=== PATIENT | female | born 1970 | race African-American/Black ===

== ENCOUNTER 2018-10-23 06:52 | Inpatient (IN) | payer SELFPAY ==
[~2018-10-23] VITALS: Ht 170.2 cm; Wt 77.1 kg
[2018-10-23] VITALS (28 sets, daily range): BP systolic 123–203; BP diastolic 71–118
[~2018-10-23 06:52] MED LIST: AMLO10TA6 PO; HYDR-2761 PO; LISI-130 PO
[2018-10-23 07:27] LABS: BASO % 0 % (0-3); EOS # 0.1 x10^3/uL (0.0-0.7); EOS % 1 % (0-3); HEMATOCRIT 37.7 % (36.0-47.0); HEMOGLOBIN 12.3 g/dL (12.0-15.5); LYMPH # 1.6 x10^3/uL (1.0-4.8); LYMPH % 32 % (24-48); MEAN CORPUSCULAR HEMOGLOBIN 24 pg (25-35); MEAN CORPUSCULAR HGB CONC 33 g/dL (31-37); MEAN CORPUSCULAR VOLUME 73 fL (79-100); MONO # 0.6 x10^3/uL (0.0-1.1); MONO % 12 % (0-9); NEUT # 2.7 x10^3uL (1.8-7.7); NEUT % 55 % (31-73); PLATELET COUNT 199 x10^3/uL (140-400); RED CELL DISTRIBUTION WIDTH 15.3 % (11.5-14.5); WHITE BLOOD COUNT 4.9 x10^3/uL (4.0-11.0)
--- NOTE | 2018-10-23 07:27 | EKG ---
[facility] [address] [place] [address] Test Date: 2018-10-23 Test Time: 07:14:41 Pat Name: ISELA FLEMING Department: Room: Gender: F Customer Operations Specialist: Kaycee : 1970 Requested By: DENITA BRADY Order Number: [id number] Reading MD: Measurements Intervals [place] Rate: 85 P: 55 ND: 156 QRS: 9 QRSD: 84 T: 62 QT: 382 QTc: 455 Interpretive Statements SINUS RHYTHM LEFT ATRIAL ABNORMALITY ABNORMAL ECG RI6.01 No previous ECG available for comparison
--- NOTE | 2018-10-23 07:29 | PHYS DOC ---
Past Medical History Past Medical History: Hypertension Past Surgical History: Tonsillectomy, Other Additional Past Surgical Histo: abd sx Additional Information: / ppd Alcohol Use: Occasionally Additional Information: Last drink of alcohol was yesterday Drug Use: Marijuana Adult General Chief Complaint Chief Complaint: CHEST PAIN-NON CARDIAC NATURE HPI HPI Patient is a 48 year old female who is presenting with chief complaint of chest discomfort has had this intermittently for months but over the last 24 hours is more constant and more severe pinching like needles pain in the sternum nonradiating but associated with some numbness of first the right and then the left arm. No abdominal pain no vomiting mild shortness of breath she was on blood pressure medication in the past but has not taken in a while she did not like the way made her feel. The pain is nonexertional Review of Systems Review of Systems Constitutional: Denies fever or chills [] Eyes: Denies change in visual acuity, redness, or eye pain [] HENT: Denies nasal congestion or sore throat [] Respiratory: Cardiovascular: No additional information not addressed in HPI [] GI: Denies abdominal pain, nausea, vomiting, bloody stools or diarrhea [] Neurologic: Denies headache, focal weakness or sensory changes [] All other systems were reviewed and found to be within normal limits, except as documented in this note. Current Medications Current Medications Current Medications Medications (Trade) Dose Ordered Sig/Leonid Start Time Stop Time Status Last Admin Dose Admin Aspirin (Children'S Aspirin) 324 mg 1X ONCE 10/23/18 07:30 10/23/18 07:31 DC 10/23/18 07:27 324 MG Info (CONTRAST GIVEN -- Rx MONITORING) 1 each PRN DAILY PRN 10/23/18 08:00 18 07:59 Labetalol HCl (Normodyne Iv Push) 20 mg 1X ONCE 10/23/18 07:30 10/23/18 07:31 DC 10/23/18 07:30 20 MG Nitroglycerin (Nitro-Bid Oint) 2 inch 1X ONCE 10/23/18 07:30 10/23/18 08:31 DC 10/23/18 07:28 2 INCH Allergies Allergies Allergies Coded Allergies Type Severity Reaction Last Updated Verified No Known Drug Allergies 02/24/14 No Physical Exam Physical Exam Constitutional: Well developed, well nourished, no acute distress, non-toxic appearance. [] HENT: Normocephalic, atraumatic, bilateral external ears normal, oropharynx moist, no oral exudates, nose normal. [] Eyes: PERRLA, EOMI, conjunctiva normal, no discharge. [] Neck: Normal range of motion, no tenderness, supple, no stridor. [] Cardiovascular:Heart rate regular rhythm, no murmur [] Lungs & Thorax: Bilateral breath sounds clear to auscultation [] Abdomen: Bowel sounds normal, soft, no tenderness, no masses, no pulsatile masses. [] Skin: Warm, dry, no erythema, no rash. [] Back: No tenderness, no CVA tenderness. [] Extremities: No tenderness, no cyanosis, no clubbing, ROM intact, no edema. [] Neurologic: Alert and oriented X 3, normal motor function, normal sensory function, no focal deficits noted. [] Psychologic: Affect normal, judgement normal, mood normal. [] Current Patient Data Vital Signs Vital Signs Date Time Temp Pulse Resp B/P (MAP) Pulse Ox O2 Delivery O2 Flow Rate FiO2 10/23/18 07:30 83 247/118 10/23/18 07:01 97.7 20 100 Room Air 97.7 Lab Values Laboratory Tests Test 10/23/18 07:05 10/23/18 07:13 10/23/18 07:14 10/23/18 07:16 White Blood Count 4.9 x10^3/uL (4.0-11.0) Red Blood Count 5.20 x10^6/uL (3.50-5.40) Hemoglobin 12.3 g/dL (12.0-15.5) Hematocrit 37.7 % (36.0-47.0) Mean Corpuscular Volume 73 fL (79-100) L Mean Corpuscular Hemoglobin 24 pg (25-35) L Mean Corpuscular Hemoglobin Concent 33 g/dL (31-37) Red Cell Distribution Width 15.3 % (11.5-14.5) H Platelet Count 199 x10^3/uL (140-400) Neutrophils (%) (Auto) 55 % (31-73) Lymphocytes (%) (Auto) 32 % (24-48) Monocytes (%) (Auto) 12 % (0-9) H Eosinophils (%) (Auto) 1 % (0-3) Basophils (%) (Auto) 0 % (0-3) Neutrophils # (Auto) 2.7 x10^3uL (1.8-7.7) Lymphocytes # (Auto) 1.6 x10^3/uL (1.0-4.8) Monocytes # (Auto) 0.6 x10^3/uL (0.0-1.1) Eosinophils # (Auto) 0.1 x10^3/uL (0.0-0.7) Basophils # (Auto) 0.0 x10^3/uL (0.0-0.2) Prothrombin Time 11.5 SEC (11.7-14.0) L Prothrombin Time INR 0.9 (0.8-1.1) Maternal Serum HCG Beta Subunit 1 mIU/mL (0-5) Sodium Level 137 mmol/L (136-145) Potassium Level 3.7 mmol/L (3.5-5.1) Chloride Level 100 mmol/L (98-107) Carbon Dioxide Level 29 mmol/L (21-32) Anion Gap 8 (6-14) 19 mmol/L (6-14) H Blood Urea Nitrogen 15 mg/dL (7-20) Creatinine 0.8 mg/dL (0.6-1.0) Estimated GFR (Cockcroft-Gault) 92.6 BUN/Creatinine Ratio 19 (6-20) Glucose Level 95 mg/dL (70-99) 93 mg/dL (70-99) Calcium Level 8.7 mg/dL (8.5-10.1) Total Bilirubin 0.2 mg/dL (0.2-1.0) Aspartate Amino Transferase (AST) 15 U/L (15-37) Alanine Aminotransferase (ALT) 15 U/L (14-59) Alkaline Phosphatase 77 U/L (46-116) Troponin I Quantitative 0.113 ng/mL (0.000-0.055) LY-Ggw-J-Type Natriuretic Peptide 111 pg/mL (0-124) Total Protein 7.8 g/dL (6.4-8.2) Albumin 3.6 g/dL (3.4-5.0) Albumin/Globulin Ratio 0.9 (1.0-1.7) L Lipase 103 U/L (73-393) POC Urine HCG, Qualitative Hcg negative (Negative) POC Troponin I 0.06 ng/ml (<0.08) POC Hemoglobin 13.9 g/dL (12-15) POC Hematocrit 41 % (36-40) H POC Sodium 138 mmol/L (135-145) POC Potassium 3.6 mmol/L (3.5-5.0) POC Chloride 98 mmol/L (98-110) POC Total CO2 25 mmol/L (23-32) POC Blood Urea Nitrogen 13 mg/dL (8-26) POC Creatinine 0.7 mg/dL (0.5-1.4) POC Ionized Calcium (Karen) 1.17 mmol/L (1.13-1.32) Laboratory Tests 10/23/18 07:05 Laboratory Tests 10/23/18 07:05 10/23/18 07:16 EKG EKG []EKG shows a normal sinus rhythm with a rate of 85 there is some borderline ST depression inferiorly as well as laterally but there is no ST elevation noted. Interpreted by me the timing encounter Radiology/Procedures Radiology/Procedures [] Impressions: Impression: Partially calcified plaque involving the descending portion of the aortic arch. Scattered other calcific involvement of the abdominal aorta and iliac arteries. These findings are advanced for age. No intramural hematoma or aortic dissection identified. Distended main pulmonary artery. Findings of concern for pulmonary arterial hypertension. Right cystic thyroid lesion with nodular enhancing component. Further evaluation with ultrasound is recommended on a nonemergent basis. Enlarged fibroid uterus. Electronically signed by: Luigi Borges MD (10/23/2018 9:24 AM) [id number] DICTATED and SIGNED BY: TITA GHOSH MD DATE: 10/23/18 0825 Course & Med Decision Making Course & Med Decision Making Pertinent Labs and Imaging studies reviewed. (See chart for details) []Severe hypertension to 248/117 with hypertensive urgency some chest discomfort borderline EKG changes neEd to rule out dissection labetalol aspirin given in the emergency room patient will be admitted overnight for further stratification observation. pt requiring multiple doses of labetalol, nitro started bump in trop aspirin given ct neg for dissection i told the patient about the ened for outpatient thryoid ultrasound. d/w cameron saw pt in er Ilana Disclaimer Ilana Disclaimer This electronic medical record was generated, in whole or in part, using a voice recognition dictation system. Departure Departure Impression: Primary Impression: Chest pain Additional Impression: Hypertensive urgency Disposition: 09 ADMITTED INPATIENT Admitting Physician: Yani Peguero Condition: STABLE Problem Qualifiers DENITA BRADY MD Oct 23, 2018 07:29
[2018-10-23] MEDS ORDERED: NITROGLYCERIN OINT 1 GM PACKET. TP ONE (07:30)
[2018-10-23] MEDS ORDERED: ASPIRIN CHEWABLE 81 MG TABLET. PO ONE (07:30)
[2018-10-23] MEDS ORDERED: LABETALOL 20 MG/4 ML DISP.SYRIN. IVP ONE ×2 (07:30→09:00)
[2018-10-23 07:34] LABS: PROTHROMBIN TIME PATIENT 11.5 SEC (11.7-14.0)
[2018-10-23 07:38] LABS: CREATININE ISTAT 0.7 mg/dL (0.5-1.4); HEMOGLOBIN ISTAT 13.9 g/dL (12-15); ION CA ISTAT 1.17 mmol/L (1.13-1.32); POTASSIUM ISTAT 3.6 mmol/L (3.5-5.0)
[2018-10-23 07:44] LABS: CALCIUM 8.7 mg/dL (8.5-10.1); CREATININE 0.8 mg/dL (0.6-1.0); GFR 92.6; POTASSIUM 3.7 mmol/L (3.5-5.1)
[2018-10-23 07:49] LABS: ALBUMIN 3.6 g/dL (3.4-5.0); ALBUMIN/GLOBULIN RATIO 0.9 (1.0-1.7); TOTAL BILIRUBIN 0.2 mg/dL (0.2-1.0); TOTAL PROTEIN 7.8 g/dL (6.4-8.2)
[2018-10-23] MEDS ORDERED: CONTRAST GIVEN. MC PRN (08:00)
--- NOTE | 2018-10-23 08:03 | RAD ---
Portable chest, 10/23/2018: HISTORY: Chest pain Comparison is made to a study from 08/14/2014. The heart size and pulmonary vascularity are normal. No pulmonary infiltrate is seen. There is no evidence of pleural fluid. IMPRESSION: No acute cardiopulmonary abnormality is detected. Electronically signed by: Ankit Perry MD (10/23/2018 7:59 AM) [facility]
[2018-10-23] MEDS ORDERED: IOHEXOL 300 MG/ML 100ML VIAL. IV ONE (08:30)
[2018-10-23] MEDS ORDERED: fentaNYL PF VIAL 100 MCG/2 ML VIAL IV ONE (09:00)
[2018-10-23] MEDS ORDERED: NITROGLYCERIN PREMIX 250 ML IV ONE ×2 (09:00→09:30)
[2018-10-23] MEDS ORDERED: NICOTINE 21MG PATCH. TD PRN (09:15)
[2018-10-23] MEDS ORDERED: LABETALOL 20 MG/4 ML DISP.SYRIN. IVP PRN (09:15)
[2018-10-23] MEDS ORDERED: ENALAPRILAT 1.25 MG/ML VIAL. IVP PRN (09:15)
[2018-10-23] MEDS ORDERED: IBUPROFEN 600 MG TABLET. PO PRN (09:15)
[2018-10-23] MEDS ORDERED: KETOROLAC 15 MG/ML VIAL. IV PRN (09:15)
--- NOTE | 2018-10-23 09:20 | PDOC1 ---
History and Physical Date of Admission Date of Admission DATE: 10/23/18 TIME: 09:13 Identification/Chief Complaint Chief Complaint Headache, midsternal chest pressure, tingling numbness right then left hand/arm Source Source: Caregiver, Chart review, Patient History of Present Illness History of Present Illness 48-year-old female, known hypertensive supposed to be on at least 2 blood pressure meds but not been taking for years, significant other or family member at bedside and is frustrated about it. She comes in because of chest pressure or heaviness midsternal, no presyncopal symptoms, maybe some SOA and severe headache. She describes as heavy and steady, associated with nausea,. NO identifiable precipitating or alleviating factors,Also noted some tingling numbness in the right hand or arm 2 days ago and now has moved to the left hand or arm. She was able to walk to the ER bathroom and from with gait steady. My neuro exam is non focal, Blood pressure 250 on admission systolic and has come down with Nitropaste and labetalol to 180s systolic. We will admit for hypertensive emergency with chest pain. EKG reassuring but troponin 0.113, ist set/. No known personal or family history of premature CAD. She does smoke half a pack a day, occasional drinker. No significant past surgical history. Family history of hypertension. CT angio ordered by ER to rule out dissection although suspicion is low, is still pending Past Medical History Cardiovascular: HTN Past Surgical History Past Surgical History: No pertinent history Family History Family History: Hypertension Social History Smoke: <1 pack per day ALCOHOL: occassional Drugs: None Current Problem List Problem List Problems Medical Problems: (1) Chest pain Status: Acute (2) Hypertensive urgency Status: Acute Current Medications Current Medications Current Medications Labetalol HCl (Normodyne Iv Push) 20 mg 1X ONCE IVP Last administered on 10/23at 07:30; Start 10/23/18 at 07:30; Stop 10/23/18 at 07:31; Status DC Nitroglycerin (Nitro-Bid Oint) 2 inch 1X ONCE TP Last administered on at 07:28; Start 10/23/18 at 07:30; Stop 10/23/18 at 08:31; Status DC Aspirin (Children'S Aspirin) 324 mg 1X ONCE PO Last administered on at 07:27; Start 10/23/18 at 07:30; Stop 10/23/18 at 07:31; Status DC Iohexol (Omnipaque 300 Mg/ml) 90 ml 1X ONCE IV Last administered on at 08:09; Start 10/23/18 at 08:30; Stop 10/23/18 at 08:31; Status DC Info (CONTRAST GIVEN -- Rx MONITORING) 1 each PRN DAILY PRN MC SEE COMMENTS; Start 10/23/18 at 08:00; Stop 10/25/18 at 07:59 Nitroglycerin/ Dextrose 250 ml @ 0 mls/hr 1X ONCE IV Last administered on at 08:44; Start 10/23/18 at 09:00; Stop 10/23/18 at 09:01; Status DC Fentanyl Citrate (Fentanyl 2ml Vial) 50 mcg 1X ONCE IV Last administered on at 08:44; Start 10/23/18 at 09:00; Stop 10/23/18 at 09:01; Status DC Labetalol HCl (Normodyne Iv Push) 20 mg 1X ONCE IVP Last administered on 10/23at 09:03; Start 10/23/18 at 09:00; Stop 10/23/18 at 09:01; Status DC Labetalol HCl (Normodyne Iv Push) 20 mg PRN Q2HR PRN IVP HYPERTENSION, SEE COMMENTS; Start 10/23/18 at 09:15; Status UNV Amlodipine Besylate (Norvasc) 10 mg DAILY PO ; Start 10/24/18 at 09:00; Status UNV Acetaminophen/ Hydrocodone Bitart (Lortab 5/325) 1 tab QID PRN PO pain; Start 10/23/18 at 09:15; Status UNV Lisinopril (Prinivil) 40 mg DAILY PO ; Start 10/24/18 at 09:00; Status UNV Active Scripts Active Reported Hydrocodone-Apap 5-325 (Hydrocodone Bit/Acetaminophen) 1 Each Tablet 1 Each PO Amlodipine Besylate 10 Mg Tablet 10 Mg PO Lisinopril 40 Mg Tablet 40 Mg PO DAILY Allergies Allergies: Coded Allergies: No Known Drug Allergies (Unverified , 02/24/14) ROS Review of System Pos for, chest pressure, nauseated, the rest of ROS 14 point reviewed negative. The rest as per history of present illness Physical Exam General: Alert, Oriented X3, Cooperative, No acute distress, Other (but looks uncomfortable and is holding her midsternal chest when she describes the pain to me) HEENT: Atraumatic, PERRLA, EOMI Lungs: Clear to auscultation Heart: S1S2, RRR, no thrills, no rubs, no gallops, no murmurs Cardiovascular: S1, S2 Breasts: Normal, Rt breast nml w/o mass, Lt breast nml w/o mass, Nipples normal Abdomen: Normal bowel sounds, Soft, No tenderness, No hepatosplenomegaly, No masses Rectal Exam: not examined PELVIC: Nml ext genitalia Extremities: No clubbing, No cyanosis, No edema, Normal pulses, No tenderness/ swelling Skin: No rashes, No breakdown, No significant lesion Neuro: Normal gait, Normal speech, Strength at 5/5 X4 ext, Normal tone, Sensation intact, Cranial nerves 3-12 NL, Reflexes 2+ Psych/Mental Status: Mental status NL, Mood NL Vitals Vitals Vital Signs Date Time Temp Pulse Resp B/P (MAP) Pulse Ox O2 Delivery O2 Flow Rate FiO2 10/23/18 09:03 72 200/105 10/23/18 07:01 97.7 20 100 Room Air 97.7 Labs Labs Laboratory Tests Test 10/23/18 07:05 10/23/18 07:13 10/23/18 07:14 10/23/18 07:16 White Blood Count 4.9 x10^3/uL (4.0-11.0) Red Blood Count 5.20 x10^6/uL (3.50-5.40) Hemoglobin 12.3 g/dL (12.0-15.5) Hematocrit 37.7 % (36.0-47.0) Mean Corpuscular Volume 73 fL (79-100) Mean Corpuscular Hemoglobin 24 pg (25-35) Mean Corpuscular Hemoglobin Concent 33 g/dL (31-37) Red Cell Distribution Width 15.3 % (11.5-14.5) Platelet Count 199 x10^3/uL (140-400) Neutrophils (%) (Auto) 55 % (31-73) Lymphocytes (%) (Auto) 32 % (24-48) Monocytes (%) (Auto) 12 % (0-9) Eosinophils (%) (Auto) 1 % (0-3) Basophils (%) (Auto) 0 % (0-3) Neutrophils # (Auto) 2.7 x10^3uL (1.8-7.7) Lymphocytes # (Auto) 1.6 x10^3/uL (1.0-4.8) Monocytes # (Auto) 0.6 x10^3/uL (0.0-1.1) Eosinophils # (Auto) 0.1 x10^3/uL (0.0-0.7) Basophils # (Auto) 0.0 x10^3/uL (0.0-0.2) Prothrombin Time 11.5 SEC (11.7-14.0) Prothromb Time International Ratio 0.9 (0.8-1.1) Maternal Serum HCG Beta Subunit 1 mIU/mL (0-5) Sodium Level 137 mmol/L (136-145) Potassium Level 3.7 mmol/L (3.5-5.1) Chloride Level 100 mmol/L (98-107) Carbon Dioxide Level 29 mmol/L (21-32) Anion Gap 8 (6-14) 19 mmol/L (6-14) Blood Urea Nitrogen 15 mg/dL (7-20) Creatinine 0.8 mg/dL (0.6-1.0) Estimated GFR (Cockcroft-Gault) 92.6 BUN/Creatinine Ratio 19 (6-20) Glucose Level 95 mg/dL (70-99) 93 mg/dL (70-99) Calcium Level 8.7 mg/dL (8.5-10.1) Total Bilirubin 0.2 mg/dL (0.2-1.0) Aspartate Amino Transf (AST/SGOT) 15 U/L (15-37) Alanine Aminotransferase (ALT/SGPT) 15 U/L (14-59) Alkaline Phosphatase 77 U/L (46-116) Troponin I Quantitative 0.113 ng/mL (0.000-0.055) PR-Aob-O-Type Natriuretic Peptide 111 pg/mL (0-124) Total Protein 7.8 g/dL (6.4-8.2) Albumin 3.6 g/dL (3.4-5.0) Albumin/Globulin Ratio 0.9 (1.0-1.7) Lipase 103 U/L (73-393) Bedside Urine HCG, Qualitative Hcg negative (Negative) Bedside Troponin I 0.06 ng/ml (<0.08) Bedside Hemoglobin 13.9 g/dL (12-15) Bedside Hematocrit 41 % (36-40) Bedside Sodium 138 mmol/L (135-145) Bedside Potassium 3.6 mmol/L (3.5-5.0) Bedside Chloride 98 mmol/L (98-110) Bedside Total CO2 25 mmol/L (23-32) Bedside Blood Urea Nitrogen 13 mg/dL (8-26) Bedside Creatinine 0.7 mg/dL (0.5-1.4) Bedside Ionized Calcium (Karen) 1.17 mmol/L (1.13-1.32) Laboratory Tests Test 10/23/18 07:05 10/23/18 07:13 10/23/18 07:14 10/23/18 07:16 White Blood Count 4.9 x10^3/uL (4.0-11.0) Red Blood Count 5.20 x10^6/uL (3.50-5.40) Hemoglobin 12.3 g/dL (12.0-15.5) Hematocrit 37.7 % (36.0-47.0) Mean Corpuscular Volume 73 fL (79-100) Mean Corpuscular Hemoglobin 24 pg (25-35) Mean Corpuscular Hemoglobin Concent 33 g/dL (31-37) Red Cell Distribution Width 15.3 % (11.5-14.5) Platelet Count 199 x10^3/uL (140-400) Neutrophils (%) (Auto) 55 % (31-73) Lymphocytes (%) (Auto) 32 % (24-48) Monocytes (%) (Auto) 12 % (0-9) Eosinophils (%) (Auto) 1 % (0-3) Basophils (%) (Auto) 0 % (0-3) Neutrophils # (Auto) 2.7 x10^3uL (1.8-7.7) Lymphocytes # (Auto) 1.6 x10^3/uL (1.0-4.8) Monocytes # (Auto) 0.6 x10^3/uL (0.0-1.1) Eosinophils # (Auto) 0.1 x10^3/uL (0.0-0.7) Basophils # (Auto) 0.0 x10^3/uL (0.0-0.2) Prothrombin Time 11.5 SEC (11.7-14.0) Prothromb Time International Ratio 0.9 (0.8-1.1) Maternal Serum HCG Beta Subunit 1 mIU/mL (0-5) Sodium Level 137 mmol/L (136-145) Potassium Level 3.7 mmol/L (3.5-5.1) Chloride Level 100 mmol/L (98-107) Carbon Dioxide Level 29 mmol/L (21-32) Anion Gap 8 (6-14) 19 mmol/L (6-14) Blood Urea Nitrogen 15 mg/dL (7-20) Creatinine 0.8 mg/dL (0.6-1.0) Estimated GFR (Cockcroft-Gault) 92.6 BUN/Creatinine Ratio 19 (6-20) Glucose Level 95 mg/dL (70-99) 93 mg/dL (70-99) Calcium Level 8.7 mg/dL (8.5-10.1) Total Bilirubin 0.2 mg/dL (0.2-1.0) Aspartate Amino Transf (AST/SGOT) 15 U/L (15-37) Alanine Aminotransferase (ALT/SGPT) 15 U/L (14-59) Alkaline Phosphatase 77 U/L (46-116) Troponin I Quantitative 0.113 ng/mL (0.000-0.055) VP-Fod-G-Type Natriuretic Peptide 111 pg/mL (0-124) Total Protein 7.8 g/dL (6.4-8.2) Albumin 3.6 g/dL (3.4-5.0) Albumin/Globulin Ratio 0.9 (1.0-1.7) Lipase 103 U/L (73-393) Bedside Urine HCG, Qualitative Hcg negative (Negative) Bedside Troponin I 0.06 ng/ml (<0.08) Bedside Hemoglobin 13.9 g/dL (12-15) Bedside Hematocrit 41 % (36-40) Bedside Sodium 138 mmol/L (135-145) Bedside Potassium 3.6 mmol/L (3.5-5.0) Bedside Chloride 98 mmol/L (98-110) Bedside Total CO2 25 mmol/L (23-32) Bedside Blood Urea Nitrogen 13 mg/dL (8-26) Bedside Creatinine 0.7 mg/dL (0.5-1.4) Bedside Ionized Calcium (Karen) 1.17 mmol/L (1.13-1.32) VTE Prophylaxis Ordered VTE Prophylaxis Devices: Yes VTE Pharmacological Prophylaxi: Yes Assessment/Plan Assessment/Plan Chest pressure in the background of hypertensive emergency Trop leak Hypertensive emergency with systolic greater than 257 admission Elevated troponin the background of accelerated/hypertensive emergency Hand tingling numbness in the background of a hypertensive emergency Smoker - 0.5 ppday NOn compliance to BP meds PLAN: Admit CVC, labetolol when necessary Nitropaste attached I did reconcile her home emds, 2 BP meds supposed to be on at home (SAHNE inhib and norvasc) Cards consult Cycle enzymes 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
--- NOTE | 2018-10-23 09:28 | RAD ---
Examination: CT ANGIO CHEST ABD PELVIS History: HTN CP X MONTHS WORSE IN LAST 24 HRS INJ 90ML OMNI 300 NO PREV Comparison/Correlation: None Findings: Axial images of the chest, abdomen, and pelvis were obtained prior to and following IV contrast according to arteriography and dissection protocol. Right thyroid lobe lower pole septated cystic mass measuring 3.2 cm x 2.4 cm x 3.3 cm longitudinal. There is at least one enhancing nodular structure within the superior aspect of the cystic structure anteriorly extending intraluminally. This measures 0.5 cm diameter. Main pulmonary artery is dilated with diameter 3.8 cm. Centrilobular emphysema is mild. Calcified granuloma involves the left lung base laterally. No focal infiltrate. No suspicious pulmonary nodule. Calcified left hilar lymph nodes are present. Partially calcified plaque is noted involving the proximal descending thoracic aortic arch. There is no aortic dissection delineated. Ascending aortic diameter is 3.9 cm. Descending thoracic aortic diameter of 2.7 cm is present. Bovine arch noted. Scattered atheromatous involvement of the abdominal aorta and iliac arteries is present. There is no abdominal aortic aneurysm. Celiac, superior mesenteric, and main renal arteries are patent. Inferior mesenteric artery opacifies with contrast although there may be some degree of stenosis at the origin. Liver, spleen, pancreas, adrenal glands, and kidneys are normal. Gallbladder fossa is unremarkable. No radiopaque collecting system calculi. Enlarged fibroid uterus is present. Urinary bladder is unremarkable. No ascites or pelvic free fluid. No enlarged abdominal or pelvic lymph nodes. Bony structures are unremarkable. Impression: Partially calcified plaque involving the descending portion of the aortic arch. Scattered other calcific involvement of the abdominal aorta and iliac arteries. These findings are advanced for age. No intramural hematoma or aortic dissection identified. Distended main pulmonary artery. Findings of concern for pulmonary arterial hypertension. Right cystic thyroid lesion with nodular enhancing component. Further evaluation with ultrasound is recommended on a nonemergent basis. Enlarged fibroid uterus. Electronically signed by: Luigi Borges MD (10/23/2018 9:24 AM) [id number]
[2018-10-23] MEDS: MORPHINE SULFATE 4 MG/ML VIAL. IV PRN ×4 (09:30→19:58)
[2018-10-23] MEDS: amLODIPine BESYLATE 10 MG TABLET PO SCH ×2 (10:00→13:11)
[2018-10-23] MEDS: LISINOPRIL 20 MG TABLET PO SCH ×2 (10:00→13:09)
[2018-10-23] MEDS: HYDROcodone/APAP 5/325MG 1 TAB TABLET PO PRN (11:26)
--- NOTE | 2018-10-23 11:37 | EKG ---
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
--- NOTE | 2018-10-23 12:48 | PDOC2 ---
CARDIAC CONSULT DATE OF CONSULT Date of Consult DATE: 10/23/18 TIME: 12:41 REASON FOR CONSULT Reason for Consult: Hypertensive urgency Elevated troponin REFERRING PHYSICIAN Referring Physician: Dr. Raines SOURCE Source: Chart review, Patient HISTORY OF PRESENT ILLNESS HISTORY OF PRESENT ILLNESS This is a 48 yo female, with a history of uncontrolled hypertension, who presented with complaints of chest pain. Patient reports pain has been intermittent for the last month. Located in her central chest. Describes as stabbing and pressure. Associated with left arm numbness/tingling, diaphoresis, and mild SOA. No palpitations, dizziness, nausea/vomiting or PND. Yesterday, pain intensified. Has been persistent so she came into the ED for further evaluation and treatment. BP noted to be significantly elevated upon arrival, NTG gtt initiated. CP persistent despite nitro. BP currently 160/100. Patient reports she was previously on BP medications, but quit taking them a couple of years ago as they made her feel bad. PAST MEDICAL HISTORY Cardiovascular: HTN Pulmonary: No pertinent hx CENTRAL NERVOUS SYSTEM: Other (no pertinent hx) GI: No pertinent hx Heme/Onc: No pertinent hx Hepatobiliary: No pertinent hx Psych: No pertinent hx Rheumatologic: No pertinent hx Infectious disease: No pertinent hx ENT: No pertinent hx Renal/: No pertinent hx Endocrine: No pertinent hx Dermatology: No pertinent hx PAST SURGICAL HISTORY Past Surgical History: Other (abdominal surgery) FAMILY HISTORY Family History: Coronary Artery Disease (mother CABG at 55) SOCIAL HISTORY Smoke: <1 pack per day ALCOHOL: none Drugs: Marijuana Lives: with Family CURRENT MEDICATIONS CURRENT MEDICATIONS Current Medications Medications (Trade) Dose Ordered Sig/Leonid Route PRN Reason Start Time Stop Time Status Last Admin Dose Admin Labetalol HCl (Normodyne Iv Push) 20 mg 1X ONCE IVP 10/23/18 07:30 10/23/18 07:31 DC 10/23/18 07:30 Nitroglycerin (Nitro-Bid Oint) 2 inch 1X ONCE TP 10/23/18 07:30 10/23/18 08:31 DC 10/23/18 07:28 Aspirin (Children'S Aspirin) 324 mg 1X ONCE PO 10/23/18 07:30 10/23/18 07:31 DC 10/23/18 07:27 Iohexol (Omnipaque 300 Mg/ml) 90 ml 1X ONCE IV 10/23/18 08:30 10/23/18 08:31 DC 10/23/18 08:09 Nitroglycerin/ Dextrose 250 ml @ 0 mls/hr 1X ONCE IV 10/23/18 09:00 10/23/18 09:01 DC 10/23/18 08:44 Fentanyl Citrate (Fentanyl 2ml Vial) 50 mcg 1X ONCE IV 10/23/18 09:00 10/23/18 09:01 DC 10/23/18 08:44 Labetalol HCl (Normodyne Iv Push) 20 mg 1X ONCE IVP 10/23/18 09:00 10/23/18 09:01 DC 10/23/18 09:03 Acetaminophen/ Hydrocodone Bitart (Lortab 5/325) 1 tab PRN QID PRN PO PAIN 10/23/18 09:15 10/23/18 11:26 Morphine Sulfate (Morphine Sulfate) 2 mg PRN Q2HR PRN IV PAIN 10/23/18 09:15 10/23/18 09:30 Nitroglycerin/ Dextrose 250 ml @ 0 mls/hr 1X ONCE IV 10/23/18 09:30 10/23/18 09:31 DC 10/23/18 08:48 ALLERGIES ALLERGIES: Coded Allergies: No Known Drug Allergies (Unverified , 02/24/14) ROS Review of System 14 point ROS conducted with pertinent positives noted above in HPI. PHYSICAL EXAM General: Alert, Oriented X3, Cooperative, No acute distress HEENT: Atraumatic, Mucous membr. moist/pink Lungs: Clear to auscultation, Normal air movement Heart: Regular rate, Normal S1, Normal S2, No murmurs Abdomen: Soft, No tenderness Extremities: No edema, Normal pulses Skin: No breakdown, No significant lesion Neuro: Normal tone Psych/Mental Status: Mental status NL, Mood NL MUSCULOSKELETAL: Osteoarthritic changes both hands VITALS VITALS Vital Signs Date Time Temp Pulse Resp B/P (MAP) Pulse Ox O2 Delivery O2 Flow Rate FiO2 10/23/18 12:26 99 Room Air 10/23/18 11:45 76 184/98 (126) 10/23/18 10:00 98.1 18 98.1 LABS Lab: Laboratory Tests Test 10/23/18 07:05 10/23/18 07:13 10/23/18 07:14 10/23/18 07:16 White Blood Count 4.9 x10^3/uL (4.0-11.0) Red Blood Count 5.20 x10^6/uL (3.50-5.40) Hemoglobin 12.3 g/dL (12.0-15.5) Hematocrit 37.7 % (36.0-47.0) Mean Corpuscular Volume 73 fL (79-100) Mean Corpuscular Hemoglobin 24 pg (25-35) Mean Corpuscular Hemoglobin Concent 33 g/dL (31-37) Red Cell Distribution Width 15.3 % (11.5-14.5) Platelet Count 199 x10^3/uL (140-400) Neutrophils (%) (Auto) 55 % (31-73) Lymphocytes (%) (Auto) 32 % (24-48) Monocytes (%) (Auto) 12 % (0-9) Eosinophils (%) (Auto) 1 % (0-3) Basophils (%) (Auto) 0 % (0-3) Neutrophils # (Auto) 2.7 x10^3uL (1.8-7.7) Lymphocytes # (Auto) 1.6 x10^3/uL (1.0-4.8) Monocytes # (Auto) 0.6 x10^3/uL (0.0-1.1) Eosinophils # (Auto) 0.1 x10^3/uL (0.0-0.7) Basophils # (Auto) 0.0 x10^3/uL (0.0-0.2) Prothrombin Time 11.5 SEC (11.7-14.0) Prothromb Time International Ratio 0.9 (0.8-1.1) Maternal Serum HCG Beta Subunit 1 mIU/mL (0-5) Sodium Level 137 mmol/L (136-145) Potassium Level 3.7 mmol/L (3.5-5.1) Chloride Level 100 mmol/L (98-107) Carbon Dioxide Level 29 mmol/L (21-32) Anion Gap 8 (6-14) 19 mmol/L (6-14) Blood Urea Nitrogen 15 mg/dL (7-20) Creatinine 0.8 mg/dL (0.6-1.0) Estimated GFR (Cockcroft-Gault) 92.6 BUN/Creatinine Ratio 19 (6-20) Glucose Level 95 mg/dL (70-99) 93 mg/dL (70-99) Calcium Level 8.7 mg/dL (8.5-10.1) Total Bilirubin 0.2 mg/dL (0.2-1.0) Aspartate Amino Transf (AST/SGOT) 15 U/L (15-37) Alanine Aminotransferase (ALT/SGPT) 15 U/L (14-59) Alkaline Phosphatase 77 U/L (46-116) Troponin I Quantitative 0.113 ng/mL (0.000-0.055) QD-Ylg-Z-Type Natriuretic Peptide 111 pg/mL (0-124) Total Protein 7.8 g/dL (6.4-8.2) Albumin 3.6 g/dL (3.4-5.0) Albumin/Globulin Ratio 0.9 (1.0-1.7) Lipase 103 U/L (73-393) Bedside Urine HCG, Qualitative Hcg negative (Negative) Bedside Troponin I 0.06 ng/ml (<0.08) Bedside Hemoglobin 13.9 g/dL (12-15) Bedside Hematocrit 41 % (36-40) Bedside Sodium 138 mmol/L (135-145) Bedside Potassium 3.6 mmol/L (3.5-5.0) Bedside Chloride 98 mmol/L (98-110) Bedside Total CO2 25 mmol/L (23-32) Bedside Blood Urea Nitrogen 13 mg/dL (8-26) Bedside Creatinine 0.7 mg/dL (0.5-1.4) Bedside Ionized Calcium (Karen) 1.17 mmol/L (1.13-1.32) Test 10/23/18 11:20 Troponin I Quantitative 1.635 ng/mL (0.000-0.055) ASSESSMENT/PLAN ASSESSMENT/PLAN 1. NSTEMI; highest trop 1.635 2. Chest pain, mixed features. EKG without significant acute changes 3. Hypertensive urgency with history of uncontrolled HTN; BP remains elevated 4. Tobaccoism; discussed/encourage cessation Recommendations Trend troponin ASA. Add BB Echo to assess LV function Check d-dimer, lipids BP control; will start Cardene gtt Start heparin gtt per protocol when BP is better controlled. 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
[2018-10-23] MEDS ORDERED: IBUPROFEN 200 MG TABLET. PO PRN (12:49)
[2018-10-23 14:19] LABS: BARBITURATES NEG (NEG); BENZODIAZEPINES NEG (NEG); CANNABINOIDS POS (NEG); COCAINE NEG (NEG); METHADONE NEG (NEG); OPIATES NEG (NEG); PHENCYCLIDINE NEG (NEG)
[2018-10-23 14:20] LABS: AMPHETAMINE/METHAMPHETAMINE NEG (NEG)
--- NOTE | 2018-10-23 15:20 | CARD ---
MR#: [id number] Date of Study: 10/23/2018 Ordering Physician: DENY MCFARLANE, Referring Physician: ARLENE CUELLAR, Tech: Verona Corral APPROVED REPORT EXAM: Two-dimensional and M-mode echocardiogram with Doppler and color Doppler. Other Information Quality : GoodHR: 76bpm INDICATION Chest Pain 2D DIMENSIONS RVDd2.9 (2.9-3.5cm)Left Atrium(2D)3.8 (1.6-4.0cm) IVSd1.4 (0.7-1.1cm)Aortic Root(2D)3.2 (2.0-3.7cm) LVDd5.1 (3.9-5.9cm)LVOT Diameter2.2 (1.8-2.4cm) PWd1.5 (0.7-1.1cm)LVDs2.9 (2.5-4.0cm) FS (%) 43.9 %SV93.4 ml Aortic Valve AoV Peak Mic.163.0cm/sAoV VTI36.1cm AO Peak GR.10.6mmHgLVOT VTI 27.89cm AO Mean GR.6mmHgAI P 1/2 [id number] Mitral Valve MV E Irwkaghk02.3cm/sMV E Peak Gr.124mmHg MV DECEL [id number] A Ddjiklgn13.4cm/s E/A Ratio0.8 TDI Lateral E' P. V6.50cm/sMedial E' P. V4.76cm/s E/Lateral E'11.3E/Medial E'15.4 Tricuspid Valve TR P. Otemeame461pp/sRAP QSRSRTQJ0kkNu TR Peak Gr.89jkYrIZRE77rjYo Pulmonary Vein S1 Xwhsgcji04.5cm/sS2 Kckhbchq17.90cm/s D2 Ltolycdz19.9cm/s LEFT VENTRICLE The left ventricle is normal size. There is mild concentric left ventricular hypertrophy. The left ve ntricular systolic function is normal and the ejection fraction is within normal range. The Ejection Fraction is 50-55%. There is normal LV segmental wall motion. Transmitral Doppler flow pattern is Gra de II-pseudonormal filling dynamics. RIGHT VENTRICLE The right ventricle is normal size. There is normal right ventricular wall thickness. The right ventr icular systolic function is normal. ATRIA The left atrium size is normal. The right atrium size is normal. The interatrial septum is intact wit h no evidence for an atrial septal defect or patent foramen ovale as noted on 2-D or Doppler imaging. AORTIC VALVE The aortic valve is normal in structure and function. Doppler and Color Flow revealed trace aortic re gurgitation. Calculated aortic valve area is 3 cm2 with maximum pressure gradient of 11 mmHg and mean pressure gradient of 6 mmHg. There is no significant aortic valvular stenosis. MITRAL VALVE The mitral valve is thickened but opens well. There is no evidence of mitral valve prolapse. There is no mitral valve stenosis. Doppler and Color-flow revealed trace mitral regurgitation. TRICUSPID VALVE The tricuspid valve is not well visualized. Doppler and Color Flow revealed trace tricuspid regurgita tion. There is no tricuspid valve stenosis. PULMONIC VALVE The pulmonic valve is not well visualized. Doppler and Color Flow revealed trace pulmonic valvular re gurgitation. GREAT VESSELS The aortic root is normal in size. The IVC is normal in size and collapses >50% with inspiration. PERICARDIAL EFFUSION There is no evidence of significant pericardial effusion. Critical Notification Critical Value: No <Conclusion> The left ventricle is normal size. The left ventricular systolic function is normal and the ejection fraction is within normal range. The Ejection Fraction is 50-55%. There is mild concentric left ventricular hypertrophy. There is no significant aortic valvular stenosis. Doppler and Color Flow revealed trace aortic regurgitation. Doppler and Color-flow revealed trace mitral regurgitation. Doppler and Color Flow revealed trace tricuspid regurgitation. Signed by : Gilberto Cooley MD Electronically Approved : 10/23/2018 15:19:00
[2018-10-23] MEDS ORDERED: HEPARIN 25,000UTS/500ML PREMIX 500 ML IV PRN (16:00)
[2018-10-23] MEDS: METOPROLOL TART IMMED RELEASE 25 MG TABLET. PO SCH (20:00)
[2018-10-23] MEDS ORDERED: HEPARIN for IV BOLUS 10,000 UNIT/10 ML VIAL. IV PRN (23:00)
[2018-10-24] VITALS (16 sets, daily range): BP systolic 118–157; BP diastolic 67–96
[2018-10-24] MEDS: MORPHINE SULFATE 4 MG/ML VIAL. IV PRN ×2 (03:31→07:35)
--- NOTE | 2018-10-24 06:04 | EKG ---
[facility] [address] [place] [address] Test Date: 2018-10-24 Test Time: 06:12:27 Pat Name: ISELA FLEMING Department: Room: 104 1 Gender: F Clip Baker: PRAMOD : 1970 Requested By: EDNY MCFARLANE Order Number: [id number] Reading MD: Measurements Intervals Bryant Rate: 83 P: 53 CA: 160 QRS: 17 QRSD: 84 T: 101 QT: 406 QTc: 483 Interpretive Statements SINUS RHYTHM LEFT ATRIAL ABNORMALITY QRS(T) CONTOUR ABNORMALITY CONSIDER ANTEROLATERAL MYOCARDIAL DAMAGE PROLONGED QT ABNORMAL ECG RI6.01 Compared to ECG 08/14/2014 22:29:59 Prolonged QT interval now present
[2018-10-24] MEDS: METOPROLOL TART IMMED RELEASE 25 MG TABLET. PO SCH ×2 (07:34→20:38)
--- NOTE | 2018-10-24 08:11 | PDOC ---
PROGRESS NOTES Chief Complaint Chief Complaint Hypertensive emergency with systolic greater than 257 admission Chest pain - with Elevated troponin the background of accelerated/hypertensive emergency Hand tingling numbness in the background of a hypertensive emergency Smoker - 0.5 ppday Compliance difficulties BP meds History of Present Illness History of Present Illness Ms Zapien is a 48yo F admitted for hypertensive emergency with elevated troponins, initially on a nitro gtt overnight. Troponin increased this morning, still with chest pain. CT Chest/abd/pelvis: Partially calcified plaque involving the descending portion of the aortic arch. Scattered other calcific involvement of the abdominal aorta and iliac arteries. These findings are advanced for age. No intramural hematoma or aortic dissection identified. Distended main pulmonary artery. Findings of concern for pulmonary arterial hypertension. Right cystic thyroid lesion with nodular enhancing component. Further evaluation with ultrasound is recommended on a nonemergent basis. Enlarged fibroid uterus. Plan: To cath lab radiological technologist Vitals Vitals Vital Signs Date Time Temp Pulse Resp B/P (MAP) Pulse Ox O2 Delivery O2 Flow Rate FiO2 10/24/18 08:00 90 20 142/82 (102) 98 Room Air 10/24/18 07:00 98.5 98.5 Physical Exam General: Alert, Oriented X3, Cooperative, No acute distress Heart: Regular rate, Normal S1, Normal S2, No murmurs Abdomen: Soft, No tenderness Extremities: No edema, Normal pulses Skin: No breakdown, No significant lesion Labs LABS Laboratory Tests Test 10/23/18 11:20 10/23/18 13:49 10/23/18 14:20 10/23/18 22:00 Troponin I Quantitative 1.635 ng/mL (0.000-0.055) 3.768 ng/mL (0.000-0.055) Urine Opiates Screen Neg (NEG) Urine Methadone Screen Neg (NEG) Urine Barbiturates Neg (NEG) Urine Phencyclidine Screen Neg (NEG) Urine Amphetamine/Methamphetamine Neg (NEG) Urine Benzodiazepines Screen Neg (NEG) Urine Cocaine Screen Neg (NEG) Urine Cannabinoids Screen Pos (NEG) Urine Ethyl Alcohol Neg (NEG) D-Dimer (Galilea) < 0.27 ug/mlFEU Heparin Anti-Xa Act, Unfractionated 0.14 IU/mL (0.30-0.70) Assessment and Plan Assessmemt and Plan Problems Medical Problems: (1) Chest pain Status: Acute (2) Hypertensive urgency Status: Acute Comment Review of Relevant I have reviewed the following items eugene (where applicable) has been applied. Labs Laboratory Tests Test 10/23/18 07:05 10/23/18 07:13 10/23/18 07:14 10/23/18 07:16 White Blood Count 4.9 x10^3/uL (4.0-11.0) Red Blood Count 5.20 x10^6/uL (3.50-5.40) Hemoglobin 12.3 g/dL (12.0-15.5) Hematocrit 37.7 % (36.0-47.0) Mean Corpuscular Volume 73 fL (79-100) Mean Corpuscular Hemoglobin 24 pg (25-35) Mean Corpuscular Hemoglobin Concent 33 g/dL (31-37) Red Cell Distribution Width 15.3 % (11.5-14.5) Platelet Count 199 x10^3/uL (140-400) Neutrophils (%) (Auto) 55 % (31-73) Lymphocytes (%) (Auto) 32 % (24-48) Monocytes (%) (Auto) 12 % (0-9) Eosinophils (%) (Auto) 1 % (0-3) Basophils (%) (Auto) 0 % (0-3) Neutrophils # (Auto) 2.7 x10^3uL (1.8-7.7) Lymphocytes # (Auto) 1.6 x10^3/uL (1.0-4.8) Monocytes # (Auto) 0.6 x10^3/uL (0.0-1.1) Eosinophils # (Auto) 0.1 x10^3/uL (0.0-0.7) Basophils # (Auto) 0.0 x10^3/uL (0.0-0.2) Prothrombin Time 11.5 SEC (11.7-14.0) Prothromb Time International Ratio 0.9 (0.8-1.1) Maternal Serum HCG Beta Subunit 1 mIU/mL (0-5) Sodium Level 137 mmol/L (136-145) Potassium Level 3.7 mmol/L (3.5-5.1) Chloride Level 100 mmol/L (98-107) Carbon Dioxide Level 29 mmol/L (21-32) Anion Gap 8 (6-14) 19 mmol/L (6-14) Blood Urea Nitrogen 15 mg/dL (7-20) Creatinine 0.8 mg/dL (0.6-1.0) Estimated GFR (Cockcroft-Gault) 92.6 BUN/Creatinine Ratio 19 (6-20) Glucose Level 95 mg/dL (70-99) 93 mg/dL (70-99) Calcium Level 8.7 mg/dL (8.5-10.1) Total Bilirubin 0.2 mg/dL (0.2-1.0) Aspartate Amino Transf (AST/SGOT) 15 U/L (15-37) Alanine Aminotransferase (ALT/SGPT) 15 U/L (14-59) Alkaline Phosphatase 77 U/L (46-116) Troponin I Quantitative 0.113 ng/mL (0.000-0.055) ZF-Yhd-K-Type Natriuretic Peptide 111 pg/mL (0-124) Total Protein 7.8 g/dL (6.4-8.2) Albumin 3.6 g/dL (3.4-5.0) Albumin/Globulin Ratio 0.9 (1.0-1.7) Lipase 103 U/L (73-393) Bedside Urine HCG, Qualitative Hcg negative (Negative) Bedside Troponin I 0.06 ng/ml (<0.08) Bedside Hemoglobin 13.9 g/dL (12-15) Bedside Hematocrit 41 % (36-40) Bedside Sodium 138 mmol/L (135-145) Bedside Potassium 3.6 mmol/L (3.5-5.0) Bedside Chloride 98 mmol/L (98-110) Bedside Total CO2 25 mmol/L (23-32) Bedside Blood Urea Nitrogen 13 mg/dL (8-26) Bedside Creatinine 0.7 mg/dL (0.5-1.4) Bedside Ionized Calcium (Karen) 1.17 mmol/L (1.13-1.32) Test 10/23/18 11:20 10/23/18 13:49 10/23/18 14:20 10/23/18 22:00 Troponin I Quantitative 1.635 ng/mL (0.000-0.055) 3.768 ng/mL (0.000-0.055) Urine Opiates Screen Neg (NEG) Urine Methadone Screen Neg (NEG) Urine Barbiturates Neg (NEG) Urine Phencyclidine Screen Neg (NEG) Urine Amphetamine/Methamphetamine Neg (NEG) Urine Benzodiazepines Screen Neg (NEG) Urine Cocaine Screen Neg (NEG) Urine Cannabinoids Screen Pos (NEG) Urine Ethyl Alcohol Neg (NEG) D-Dimer (Galilea) < 0.27 ug/mlFEU Heparin Anti-Xa Act, Unfractionated 0.14 IU/mL (0.30-0.70) Laboratory Tests Test 10/23/18 11:20 10/23/18 13:49 10/23/18 14:20 10/23/18 22:00 Troponin I Quantitative 1.635 ng/mL (0.000-0.055) 3.768 ng/mL (0.000-0.055) Urine Opiates Screen Neg (NEG) Urine Methadone Screen Neg (NEG) Urine Barbiturates Neg (NEG) Urine Phencyclidine Screen Neg (NEG) Urine Amphetamine/Methamphetamine Neg (NEG) Urine Benzodiazepines Screen Neg (NEG) Urine Cocaine Screen Neg (NEG) Urine Cannabinoids Screen Pos (NEG) Urine Ethyl Alcohol Neg (NEG) D-Dimer (Galilea) < 0.27 ug/mlFEU Heparin Anti-Xa Act, Unfractionated 0.14 IU/mL (0.30-0.70) Medications Current Medications Labetalol HCl (Normodyne Iv Push) 20 mg 1X ONCE IVP Last administered on 10/23at 07:30; Start 10/23/18 at 07:30; Stop 10/23/18 at 07:31; Status DC Nitroglycerin (Nitro-Bid Oint) 2 inch 1X ONCE TP Last administered on at 07:28; Start 10/23/18 at 07:30; Stop 10/23/18 at 08:31; Status DC Aspirin (Children'S Aspirin) 324 mg 1X ONCE PO Last administered on at 07:27; Start 10/23/18 at 07:30; Stop 10/23/18 at 07:31; Status DC Iohexol (Omnipaque 300 Mg/ml) 90 ml 1X ONCE IV Last administered on at 08:09; Start 10/23/18 at 08:30; Stop 10/23/18 at 08:31; Status DC Info (CONTRAST GIVEN -- Rx MONITORING) 1 each PRN DAILY PRN MC SEE COMMENTS; Start 10/23/18 at 08:00; Stop 10/25/18 at 07:59 Nitroglycerin/ Dextrose 250 ml @ 0 mls/hr 1X ONCE IV Last administered on at 08:44; Start 10/23/18 at 09:00; Stop 10/23/18 at 09:01; Status DC Fentanyl Citrate (Fentanyl 2ml Vial) 50 mcg 1X ONCE IV Last administered on at 08:44; Start 10/23/18 at 09:00; Stop 10/23/18 at 09:01; Status DC Labetalol HCl (Normodyne Iv Push) 20 mg 1X ONCE IVP Last administered on 10/23at 09:03; Start 10/23/18 at 09:00; Stop 10/23/18 at 09:01; Status DC Labetalol HCl (Normodyne Iv Push) 20 mg PRN Q2HR PRN IVP HYPERTENSION, SEE COMMENTS Last administered on 10/23/18at 13:16; Start 10/23/18 at 09:15 Amlodipine Besylate (Norvasc) 10 mg DAILY PO Last administered on 10/23/18at 13 :11; Start 10/23/18 at 10:00 Acetaminophen/ Hydrocodone Bitart (Lortab 5/325) 1 tab PRN QID PRN PO PAIN Last administered on 10/23/18at 11:26; Start 10/23/18 at 09:15 Lisinopril (Prinivil) 40 mg DAILY PO Last administered on 10/23/18at 13:09; Start 10/23/18 at 10:00 Ibuprofen (Motrin) 600 mg PRN Q6HRS PRN PO INFLAMMATION; Start 10/23/18 at 09: 15; Stop 10/23/18 at 12:49; Status DC Nicotine (Nicoderm Cq 21mg) 1 patch PRN DAILY PRN TD SMOKING CESSATION; Start 10/23/18 at 09:15 Morphine Sulfate (Morphine Sulfate) 2 mg PRN Q2HR PRN IV PAIN Last administered on 10/24/18at 07:35; Start 10/23/18 at 09:15 Ketorolac Tromethamine (Toradol 15mg Vial) 15 mg PRN Q6HRS PRN IV PAIN; Start 10/23/18 at 09:15; Stop 10/28/18 at 09:14 Aspirin (Patti Aspirin) 325 mg DAILYWBKFT PO ; Start 10/24/18 at 08:00 Enalaprilat (Vasotec Inj) 1.25 mg PRN Q6HRS PRN IVP HYPERTENSION, SEE COMMENTS ; Start 10/23/18 at 09:15 Nitroglycerin/ Dextrose 250 ml @ 0 mls/hr 1X ONCE IV Last administered on at 08:48; Start 10/23/18 at 09:30; Stop 10/23/18 at 09:31; Status DC Influenza Virus Vaccine (Afluria Trivalent [id number] Syringe) 0.5 ml ONCE ONCE VAX IM ; Start 10/24/18 at 09:00; Stop 10/24/18 at 09:01 Ibuprofen (Motrin) 600 mg PRN Q6HRS PRN PO INFLAMMATION; Start 10/23/18 at 12: 49 Nicardipine HCl 50 mg/Sodium Chloride 270 ml @ 27 mls/hr CONT PRN IV SEE I/O RECORD Last administered on 10/24/18at 03:32; Start 10/23/18 at 13:30 Heparin Sodium/ Dextrose 500 ml @ 0 mls/hr CONT PRN IV SEE I/O RECORD Last administered on 10/23/18at 17:54; Start 10/23/18 at 16:00 Metoprolol Tartrate (Lopressor) 25 mg BID PO Last administered on 10/24/18at 07 :34; Start 10/23/18 at 21:00 Heparin Sodium (Porcine) (Heparin Sodium) 1,950 unit PRN Q6HRS PRN IV FOR UFH LEVEL LESS THAN 0.2 Last administered on 10/23/18at 23:17; Start 10/23/18 at 23 :00 Active Scripts Active Vitals/I & O Vital Sign - Last 24 Hours 10/23/18 10/23/18 10/23/18 10/23/18 08:15 08:30 08:45 09:00 Pulse 80 78 84 82 Resp 16 16 16 16 B/P (MAP) 202/98 (132) 197/89 (125) 182/87 (118) 172/87 (115) Pulse Ox 100 100 100 100 O2 Delivery Room Air Room Air Room Air Room Air 10/23/18 10/23/18 10/23/18 10/23/18 09:03 09:15 09:30 09:40 Pulse 72 84 69 72 Resp 17 16 16 B/P (MAP) 200/105 183/89 (120) 177/89 (118) 160/77 (104) Pulse Ox 99 99 99 O2 Delivery Room Air Room Air Room Air 10/23/18 10/23/18 10/23/18 10/23/18 10:00 10:00 10:00 10:15 Temp 98.1 98.1 Pulse 78 80 74 Resp 18 B/P (MAP) 176/118 (137) 187/104 (131) 179/91 (120) Pulse Ox 99 99 O2 Delivery Room Air Room Air Room Air 10/23/18 10/23/18 10/23/18 10/23/18 10:30 10:44 10:45 11:00 Pulse 72 72 70 B/P (MAP) 188/84 (118) 186/94 (124) 184/98 (126) O2 Delivery Room Air 10/23/18 10/23/18 10/23/18 10/23/18 11:15 11:26 11:30 11:45 Pulse 74 78 76 B/P (MAP) 188/95 (126) 199/112 (141) 184/98 (126) Pulse Ox 99 O2 Delivery Room Air 10/23/18 10/23/18 10/23/18 10/23/18 12:00 12:15 12:26 12:45 Pulse 74 74 72 B/P (MAP) 199/98 (131) 170/90 (116) 177/85 (115) Pulse Ox 99 O2 Delivery Room Air 10/23/18 10/23/18 10/23/18 10/23/18 13:00 13:09 13:11 13:15 Pulse 76 72 72 74 B/P (MAP) 203/96 (131) 177/85 177/85 166/80 (108) 10/23/18 10/23/18 10/23/18 10/23/18 13:16 13:30 13:45 14:15 Pulse 72 70 76 B/P (MAP) 177/85 175/87 (116) 192/101 (131) O2 Delivery Room Air 10/23/18 10/23/18 10/23/18 10/23/18 14:15 14:30 14:45 15:00 Temp 98.5 98.5 Pulse 74 78 76 86 B/P (MAP) 159/110 (126) 163/85 (111) 151/83 (105) 134/96 (109) Pulse Ox 97 97 95 97 O2 Delivery Room Air Room Air Room Air Room Air 10/23/18 10/23/18 10/23/18 10/23/18 16:00 16:00 16:52 17:00 Temp 98.4 98.4 Pulse 74 82 Resp 21 B/P (MAP) 153/84 (107) 188/77 (114) Pulse Ox 96 96 96 O2 Delivery Room Air Room Air Room Air Room Air 10/23/18 10/23/18 10/23/18 10/23/18 17:45 18:00 19:00 19:58 Pulse 80 81 Resp 18 18 B/P (MAP) 139/81 (100) 162/86 (111) Pulse Ox 93 96 96 96 O2 Delivery Room Air Room Air Room Air Room Air 10/23/18 10/23/18 10/23/18 10/23/18 20:00 20:00 20:00 21:00 Temp 98.5 98.5 Pulse 92 62 92 B/P (MAP) 161/92 183/76 (111) 147/74 (98) Pulse Ox 96 96 O2 Delivery Room Air Room Air Room Air 10/23/18 10/23/18 10/23/18 10/23/18 22:00 23:00 23:59 23:59 Temp 98.6 98.6 Pulse 77 77 74 B/P (MAP) 123/71 (88) 134/74 (94) 143/89 (107) Pulse Ox 94 95 97 O2 Delivery Room Air Room Air Room Air Room Air 10/24/18 10/24/18 10/24/18 10/24/18 01:00 02:00 03:00 03:31 Pulse 93 74 72 Resp 28 24 19 B/P (MAP) 156/85 (108) 146/82 (103) 133/73 (93) Pulse Ox 97 97 94 94 O2 Delivery Room Air Room Air Room Air Room Air 10/24/18 10/24/18 10/24/18 10/24/18 04:00 04:00 04:01 05:00 Temp 98.0 98.0 Pulse 77 73 Resp 21 21 22 B/P (MAP) 128/83 (98) 135/82 (99) Pulse Ox 95 96 96 O2 Delivery Room Air Room Air Room Air Room Air 10/24/18 10/24/18 10/24/18 10/24/18 06:00 07:00 07:34 07:35 Temp 98.5 98.5 Pulse 70 82 70 Resp 21 20 18 B/P (MAP) 157/90 (112) 139/78 (98) 148/81 Pulse Ox 94 98 O2 Delivery Room Air Room Air Room Air 10/24/18 10/24/18 08:00 08:00 Pulse 90 Resp 20 B/P (MAP) 142/82 (102) Pulse Ox 98 O2 Delivery Room Air Room Air Intake and Output 10/23/18 10/23/18 10/24/18 15:01 23:01 07:01 Intake Total 256.3 ml 544.94 ml Output Total 650 ml 252 ml 600 ml Balance -393.7 ml 292.94 ml -600 ml KAREN WILSON MD Oct 24, 2018 08:11
[2018-10-24 08:50] LABS: HEMATOCRIT 40.1 % (36.0-47.0); HEMOGLOBIN 13.3 g/dL (12.0-15.5); RED BLOOD COUNT 5.54 x10^6/uL (3.50-5.40); RED CELL DISTRIBUTION WIDTH 15.3 % (11.5-14.5); WHITE BLOOD COUNT 7.8 x10^3/uL (4.0-11.0)
[2018-10-24 08:55] LABS: CALCIUM 9.4 mg/dL (8.5-10.1); CREATININE 0.6 mg/dL (0.6-1.0); GFR 129.1; MAGNESIUM 1.9 mg/dL (1.8-2.4); POTASSIUM 3.9 mmol/L (3.5-5.1)
[2018-10-24 09:01] LABS: CHOLESTEROL/HDL RATIO 2.4
[2018-10-24] MEDS: ASPIRIN 325 MG TABLET PO SCH (09:20)
[2018-10-24] MEDS ORDERED: IOHEXOL 300 MG/ML 100ML VIAL. ONE (09:22)
[2018-10-24] MEDS ORDERED: LIDOCAINE 1% PF 2 ML VIAL. ONE (09:22)
[2018-10-24] MEDS ORDERED: fentaNYL PF VIAL 100 MCG/2 ML VIAL ONE (09:22)
[2018-10-24] MEDS ORDERED: HEPARIN for ARTERIAL LINE 1,500 ML ONE (09:22)
[2018-10-24] MEDS ORDERED: MIDAZOLAM HCL/PF 2 MG/2 ML VIAL. ONE (09:22)
[2018-10-24] MEDS ORDERED: VERAPAMIL 5 MG/2 ML VIAL. ONE (09:23)
[2018-10-24] MEDS ORDERED: NITROGLYCERIN 200 MCG/2 ML SYRINGE FOR CATH/VASC LAB. ONE (09:23)
[2018-10-24] MEDS ORDERED: HEPARIN for IV BOLUS 10,000 UNIT/10 ML VIAL. ONE (09:23)
--- NOTE | 2018-10-24 09:53 | PDOC ---
Provider Note Provider Note 10/24/2018 0900 Pt AOx3, still having CP NSTEMI: peaked trop at 10 LHC today, risks and benefits explained, agreeable to proceed ARSLAN GOLDMAN CASING BLOWER Oct 24, 2018 09:53
[2018-10-24] MEDS ORDERED: ANTI-COAG MONITOR BY PHARMACY. MC PRN (10:15)
[2018-10-24] MEDS ORDERED: MIDAZOLAM HCL/PF 2 MG/2 ML VIAL. IV ONE (10:15)
[2018-10-24] MEDS ORDERED: VERAPAMIL 5 MG/2 ML VIAL. IART ONE (10:15)
[2018-10-24] MEDS ORDERED: fentaNYL PF VIAL 100 MCG/2 ML VIAL IV ONE (10:15)
[2018-10-24] MEDS ORDERED: NITROGLYCERIN 200 MCG/2 ML SYRINGE FOR CATH/VASC LAB. IART ONE (10:15)
[2018-10-24] MEDS ORDERED: IOHEXOL 300 MG/ML 100ML VIAL. IART ONE (10:15)
[2018-10-24] MEDS ORDERED: LIDOCAINE 1% PF 2 ML VIAL. INJ ONE (10:15)
[2018-10-24] MEDS ORDERED: HEPARIN for IV BOLUS 10,000 UNIT/10 ML VIAL. IART ONE (10:15)
[2018-10-24] MEDS ORDERED: CONTRAST GIVEN. MC PRN (10:30)
[2018-10-24] MEDS ORDERED: TIROFIBAN 5MG -0.9% NS 100 ML IV ONE (10:34)
[2018-10-24] MEDS ORDERED: IODIXANOL 320 MG/ML 100 ML VIAL. ONE (10:35)
[2018-10-24] MEDS ORDERED: HEPARIN for IV BOLUS 10,000 UNIT/10 ML VIAL. IV ONE (10:45)
[2018-10-24] MEDS ORDERED: NITROGLYCERIN 200 MCG/2 ML SYRINGE FOR CATH/VASC LAB. ICAR ONE (11:00)
[2018-10-24] MEDS ORDERED: CLOPIDOGREL BISULFATE 75 MG TABLET PO ONE (11:15)
[2018-10-24] MEDS: TIROFIBAN 5MG -0.9% NS 100 ML IV PRN ×2 (12:12→20:43)
--- NOTE | 2018-10-24 13:13 | CARD ---
MR#: [id number] Date of Study: 10/24/2018 Ordering Physician: ARSLAN GOLDMAN, Referring Physician: ARLENE CUELLAR Tech: RT Rosie (R) APPROVED REPORT Technologist: RT Rosie (R) Nurse: Firoella Herndon R.N. Procedure(s) performed: Moderate Sedation: 79 min HISTORY The patient is a 48 year-old female with a history of : tobacco history() , hypertension. INDICATION The indication(s) include : non-STEMI . PROCEDURE NARRATIVE INFORMED CONSENT: After explaining the risks and benefits of the procedure and alternatives, informed consent was obtained. The patient was brought electively to the cardiac catheterization lab. A timeout was performed confi rming the patient's name, date of , procedure, and site of procedure. All necessary personnel w ere wearing the appropriate protective equipment and radiation monitor devices. (See nursing notes for medications administered). ACCESS: The right wrist was sterilely prepped and draped in the usual fashion. The right wrist was infiltrat ed with 1 mL of 2% lidocaine for subcutaneous anesthesia. A 6 [place] Terumo glide sheath was inserte d into the right radial artery without difficulty. CORONARY ANGIOGRAPHY: Right and left coronary angiography was performed using a 6Fr TIG 4.0 catheter. Left ventricular en d diastolic pressure was obtained with a pigtail catheter and pullback was performed after left ventr iculography. All catheter exchanges and advancements were performed over a guidewire. FINDINGS: HEMODYNAMICS: LVEDP 6 mm Hg No gradient on LV to aortic pullback. AO: 128/78 LEFT VENTRICULOGRAM: Normal EF at 55%. No significant mitral regurgitation. CORONARY ANGIOGRAPHY: LM is a large caliber vessel with normal angiographic appearance. LAD is a large caliber vessel with a proximal ruptured plaque with a 50% stenosis. The remainder of t he vessel has mild luminal irregularities. LCx is a large caliber dominant vessel with mild luminal irregularities. OM1 is a small caliber vessel with a proximal 100% occlusion. OM2 is a large caliber vessel with probable ostial 50% stenosis. LPDA is a small caliber vessel with mild luminal irregularities. 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 AORTOGRAPHY: Due to patient's presentation with significant refractory HTN a limited abdominal aortogram was perfo rmed to evaluate for renal artery stenosis. The right and left renal arteries are patent without any significant disease. INTERVENTIONAL TECHNIQUE: Heparin and tirofiban were used for anticoagulation. Given the patient's presentation of chest pain, with a ruptured plaque in the proximal LAD and chronic total occlusion of the RCA and small caliber v essel in the obtuse marginal vessel was felt that the patient should be best treated with treatment o f the ruptured plaque in the proximal LAD. Through a 6 [place] EBU 3.5 guide catheter a 0.014 inch pro -water wire was advanced to the distal LAD. Sequential balloon angioplasty was performed with a 3.5 x 12 mm balloon. Next balloon angioplasty was performed with a 4 mm noncompliant balloon. The lesion w as stented with a 4 mm x 18 mm bare metal stent and postdilated with a 4.5 mm noncompliant balloon at 18 emily. Final post-PCI angiography demonstrated excellent stent expansion with BROOK-3 flow in the ve ssel. CLOSURE: At case completion the right radial sheath was removed and a Terumo radial band was applied with 13 m l of air. COMPLICATIONS: The patient tolerated the procedure well and there were no immediate complications. The patient was l oaded with 600 mg of Plavix at case completion. Conclusion 1. Three-vessel coronary artery disease with likely culprit of the non-STEMI being the proximal LAD p laque rupture and small caliber obtuse marginal vessel occlusion 2. Successful PCI of the proximal LAD with implantation of a 4.0 x 18 mm bare metal stent postdilated with a 4.5 mm noncompliant balloon. 3. Normal LV systolic function. EF 55% 4. No significant renal artery stenosis. 5. Normal left sided filling pressures. Recommendations ASA 81mg daily Plavix 75mg daily for at least 1 full year (for NSTEMI) Cardiac rehab High dose statin therapy Final recommendations per primary lead principal technical architect Dr. Cooley. Signed by : Billy Young, Electronically Approved : 10/24/2018 13:11:29
[2018-10-24] MEDS ORDERED: LISINOPRIL 20 MG TABLET PO ONE (15:00)
[2018-10-24] MEDS ORDERED: amLODIPine BESYLATE 10 MG TABLET PO ONE (15:00)
[2018-10-24] MEDS: HYDROcodone/APAP 5/325MG 1 TAB TABLET PO PRN (18:19)
[2018-10-24] MEDS ORDERED: ATORVASTATIN CALCIUM 40 MG TABLET. PO SCH (21:00)
[2018-10-25 03:47] VITALS: BP 115/64
[2018-10-25 07:30] VITALS: BP 126/81
[2018-10-25] MEDS ORDERED: CLOPIDOGREL BISULFATE 75 MG TABLET PO SCH (08:00)
[2018-10-25] MEDS ORDERED: CLOP75TA PO (08:26)
[2018-10-25] MEDS ORDERED: METO25TA4 PO (08:26)
[2018-10-25] MEDS ORDERED: ATOR40TA59 PO (08:26)
[2018-10-25] MEDS ORDERED: AMLO10TA6 PO (08:26)
[2018-10-25] MEDS ORDERED: ASPI-630 PO (08:26)
[2018-10-25] MEDS ORDERED: LISI-130 PO (08:26)
[2018-10-25] MEDS: ASPIRIN 325 MG TABLET PO SCH (08:49)
[2018-10-25] MEDS: amLODIPine BESYLATE 10 MG TABLET PO SCH (08:50)
[2018-10-25] MEDS: METOPROLOL TART IMMED RELEASE 25 MG TABLET. PO SCH (08:51)
[2018-10-25] MEDS: LISINOPRIL 20 MG TABLET PO SCH (08:52)
--- NOTE | 2018-10-25 10:49 | PDOC ---
CARDIO Progress Notes Date and Time Date of Service 09/29/2018 Time of Evaluation 1030 Subjective Subjective: No Chest Pain, No shortness of breath, No Palpitations Vitals Vitals Vital Signs Date Time Temp Pulse Resp B/P (MAP) Pulse Ox O2 Delivery O2 Flow Rate FiO2 10/25/18 08:52 100 126/81 10/25/18 08:00 Room Air 10/25/18 07:30 98.6 18 100 98.6 Weight Weight [ ] Input and Output Intake and Output Intake and Output 10/25/18 07:01 Intake Total 1590 ml Output Total 950 ml Balance 640 ml Intake Oral 870 ml IV Total 720 ml Output Urine Total 950 ml # Voids 2 Physical Exam HEENT: Neck Supple W Full Motion Chest: Symmetric LUNGS: Clear to Auscultation Heart: S1S2, RRR (SR no rhythm ectopies), no gallops, no murmurs Abdomen: Soft N/T Extremities: No Edema, No Calf Tenderness Neurology: alert, oriented, follow commands Other Exams right wrist arteriotomy site intact, no erythema, swelling, neurovascular status to right hand intact. Assessment Assessment 1. NSTEMI; Culprit proximal LAD rupture and small caliber OM occlusion. LHC noted with 3VD, S/P PCI/BMS to LAD, EF at 55% 2. Accelerated HTN; controlled 3. Tobaccoism and marijuana use 4. DLP Recommendations 1. ECASA 81 mg with plavix. No RADHA. Continue with norvasc, lisinopril, metoprolol and lipitor. 2. Cardiac rehab, smoking and marijuana cessation. Encouraged compliance. 3. Follow up in office in 4-5 weeks 4. Noted financial constraints. CM for referral for PCP. ARSLAN GOLDMAN APRN Oct 25, 2018 10:49
[2018-10-25 11:11] VITALS: BP 155/95
--- NOTE | 2018-10-25 14:06 | PDOC3 ---
Discharge Summary Visit Information Date of Admission: Oct 23, 2018 Date of Discharge: Oct 25, 2018 Admitting Diagnosis: chest pain Final Diagnosis Hypertensive emergency with systolic greater than 257 admission Chest pain - NSTEMI Hand tingling numbness in the background of a hypertensive emergency Smoker - 0.5 ppday, tobacco use disorder Compliance difficulties Problems Medical Problems: (1) Chest pain Status: Acute (2) Hypertensive urgency Status: Acute Brief Hospital Course Allergies Allergies Coded Allergies Type Severity Reaction Last Updated Verified No Known Drug Allergies 02/24/14 No Vital Signs Vital Signs Date Time Temp Pulse Resp B/P (MAP) Pulse Ox O2 Delivery O2 Flow Rate FiO2 10/25/18 11:11 98.2 78 18 155/95 (115) 98 Room Air 98.2 Lab Results Laboratory Tests Test 10/23/18 14:20 10/23/18 15:15 10/23/18 22:00 10/24/18 07:50 D-Dimer (Galilea) < 0.27 ug/mlFEU Troponin I Quantitative 3.768 ng/mL (0.000-0.055) 10.312 ng/mL (0.000-0.055) Nasal Screen MRSA (PCR) Negative (Negative) Heparin Anti-Xa Act, Unfractionated 0.14 IU/mL (0.30-0.70) 0.34 IU/mL (0.30-0.70) White Blood Count 7.8 x10^3/uL (4.0-11.0) Red Blood Count 5.54 x10^6/uL (3.50-5.40) Hemoglobin 13.3 g/dL (12.0-15.5) Hematocrit 40.1 % (36.0-47.0) Mean Corpuscular Volume 72 fL (79-100) Mean Corpuscular Hemoglobin 24 pg (25-35) Mean Corpuscular Hemoglobin Concent 33 g/dL (31-37) Red Cell Distribution Width 15.3 % (11.5-14.5) Platelet Count 214 x10^3/uL (140-400) Sodium Level 136 mmol/L (136-145) Potassium Level 3.9 mmol/L (3.5-5.1) Chloride Level 98 mmol/L (98-107) Carbon Dioxide Level 25 mmol/L (21-32) Anion Gap 13 (6-14) Blood Urea Nitrogen 7 mg/dL (7-20) Creatinine 0.6 mg/dL (0.6-1.0) Estimated GFR (Cockcroft-Gault) 129.1 Glucose Level 100 mg/dL (70-99) Calcium Level 9.4 mg/dL (8.5-10.1) Magnesium Level 1.9 mg/dL (1.8-2.4) Triglycerides Level 69 mg/dL (0-150) Cholesterol Level 210 mg/dL (0-200) LDL Cholesterol, Calculated 108 mg/dL (0-100) VLDL Cholesterol, Calculated 14 mg/dL (0-40) Non-HDL Cholesterol Calculated 122 mg/dL (0-129) HDL Cholesterol 88 mg/dL (40-60) Cholesterol/HDL Ratio 2.4 Test 10/25/18 11:24 Troponin I Quantitative 7.387 ng/mL (0.000-0.055) Laboratory Tests Test 10/25/18 11:24 Troponin I Quantitative 7.387 ng/mL (0.000-0.055) Brief Hospital Course Ms. Zapien is a 48 old admit for symptomatic hypertensive emergency, with elevated troponins, initially on a nitro gtt overnight. treated as NSTEMI CV eval, cath showed proximal LAD rupture and small caliber OM occlusion Discharge Information Condition at Discharge: Improved Follow Up: Weeks Disposition/Orders: D/C to Home Scheduled Amlodipine Besylate (Amlodipine Besylate) 10 Mg Tablet, 10 MG PO DAILY for hypertension, #30 Ref 5 Prescribed by: DEREK VO on 10/25/18825 Aspirin (Aspirin) 81 Mg Tab.chew, 1 TAB PO DAILY for heart, #90 Ref 3 Prescribed by: DEREK VO on 10/25/18825 Atorvastatin Calcium (Atorvastatin Calcium) 40 Mg Tablet, 40 MG PO QHS for cholesterol for heart, #30 Ref 5 Prescribed by: DEREK VO on 10/25/18825 Clopidogrel Bisulfate (Clopidogrel) 75 Mg Tablet, 75 MG PO DAILYWBKFT for prevent heart attack, #30 Ref 5 Prescribed by: DEREK VO on 10/25/18825 Lisinopril (Lisinopril) 40 Mg Tablet, 40 MG PO DAILY for hypertension, #30 Ref 5 Prescribed by: DEREK VO on 10/25/18825 Metoprolol Tartrate (Metoprolol Tartrate) 25 Mg Tablet, 25 MG PO BID for heart, #60 Ref 5 Prescribed by: DEREK VO on 10/25/18 0826 Patient Instructions Patient Instructions > 30 minutes discussed face to face DEREK VO MD Oct 25, 2018 14:06
== END 2018-10-25 15:19 | disposition home or self-care (01) | DRG 249 ==
LOC: ER 06:52 → 2 NORTH 08:20 → 1 WEST ICU 14:12 → 2 NORTH 10-24 18:00
PROVIDERS: ADMIT Internal Medicine; ATTEND Internal Medicine
PROC: 02703DZ Dilation of Coronary Artery, One Artery with Intraluminal Device, Percutaneous Approach (ICD-10-PCS; principal; 2018-10-24)
PROC: 4A023N7 Measurement of Cardiac Sampling and Pressure, Left Heart, Percutaneous Approach (ICD-10-PCS; 2018-10-24)
PROC: B2111ZZ Fluoroscopy of Multiple Coronary Arteries using Low Osmolar Contrast (ICD-10-PCS; 2018-10-24)
PROC: B2151ZZ Fluoroscopy of Left Heart using Low Osmolar Contrast (ICD-10-PCS; 2018-10-24)
PROC: B3101ZZ Fluoroscopy of Thoracic Aorta using Low Osmolar Contrast (ICD-10-PCS; 2018-10-24)
DX: I21.4 Non-ST elevation (NSTEMI) myocardial infarction (principal); I16.1 Hypertensive emergency; I10 Essential (primary) hypertension; F12.90 Cannabis use, unspecified, uncomplicated; F17.210 Nicotine dependence, cigarettes, uncomplicated; E78.5 Hyperlipidemia, unspecified; I25.10 Atherosclerotic heart disease of native coronary artery without angina pectoris; Z91.19 Patient's noncompliance with other medical treatment and regimen; Z71.6 Tobacco abuse counseling; Z82.49 Family history of ischemic heart disease and other diseases of the circulatory system
CPT/HCPCS: 36415; 71045; 71275; 74174; 80047; 80048; 80053; 80061; 80307; 81025; 83690; 83735; 83880; 84484; 84702; 85025; 85027; 85379; 85520; 85610; 87641; 92928; 93005; 93306; 93458; 96365; 96366; 96375; 96376; 99152; 99153; C1725; C1769; C1877; C1892; J1644; J2250; J2270; J3010; J3490; J7050; Q9967; 99285-25; J3246; J7030

== ENCOUNTER 2021-05-29 08:40 | Emergency (ER) | payer SELFPAY ==
[~2021-05-29] VITALS: Ht 170.2 cm; Wt 86.0 kg
[~2021-05-29 08:40] MED LIST changes: +AMLO-187 PO; -AMLO10TA6 PO; +ASPI-630 PO; +ATOR40TA59 PO; +CLOP75TA PO; +METO25TA4 PO
--- NOTE | 2021-05-29 11:09 | RAD ---
EXAM: Abdomen series, 3 views. HISTORY: Bloating. Constipation. COMPARISON: None. FINDINGS: A frontal view of the chest and frontal upright and supine views of the abdomen are obtaine d. There is no infiltrate, pleural effusion or pneumothorax. The heart is normal in size. There is wi dening of the superior mediastinum due to tortuous arch great vessels demonstrated on a prior CT kate ogram. There are nonspecific air-filled loops of bowel. There is a moderate amount of colonic stool. There is no evidence of free air. There is a suspected calcified uterine fibroid overlying the pelvis . IMPRESSION: 1. No acute pulmonary finding. 2. Moderate colonic stool. No obstructive bowel gas pattern. Electronically signed by: Seema Flores MD (05/29/2021 11:06 AM) [id number]
[2021-05-29 11:46] LABS: BILIRUBIN,URINE NEGATIVE (NEG); CLARITY,URINE CLEAR; COLOR,URINE YELLOW; NITRITE,URINE NEGATIVE (NEG); PROTEIN,URINE NEGATIVE (NEG-TRACE); UROBILINOGEN,URINE 0.2 mg/dL (0.2 mg/dL)
[2021-05-29 12:03] VITALS: BP 155/89
[2021-05-29 12:04] LABS: BACTERIA,URINE 0 /HPF (0-FEW); RBC,URINE 0 /HPF (0-2); WBC,URINE 0 /HPF (0-4)
--- NOTE | 2021-05-29 12:34 | RAD ---
EXAM: Abdomen and pelvis CT without intravenous contrast. HISTORY: Pain. TECHNIQUE: Computed tomographic images of the abdomen and pelvis were obtained without contrast. Mult iplanar reformatting was performed. *One or more of the following individualized dose reduction techniques were utilized for this examina tion: 1. Automated exposure control. 2. Adjustment of the mA and/or kV according to patient size. 3. Use of iterative reconstruction technique. COMPARISON: 10/23/2018. FINDINGS: Evaluation of the lower thorax demonstrates no infiltrate or pleural effusion. There is pos terior left basilar atelectasis or scarring. There is a lateral left basilar calcified granulomas. Th ere is suspected mild hepatic steatosis. No focal hepatic lesion is seen on this noncontrast exam. Th e gallbladder, pancreas, spleen and adrenal glands are unremarkable. No suspicious renal lesion is se en. There is no hydronephrosis or nephroureterolithiasis. The bladder is unremarkable. There is no appendicitis. There is no bowel obstruction. There is no abnormal bowel wall thickening. There is a calcified uterine fibroid. No adnexal lesion is seen. There is calcified atherosclerotic p laque involving the abdominal aorta and iliac bifurcation. There is no lymphadenopathy. There is no a cute or suspicious osseous lesion. IMPRESSION: 1. No acute abdominal or pelvic finding. 2. Suspected mild hepatic steatosis. 3. Calcified uterine fibroid. Electronically signed by: Semea Flores MD (05/29/2021 12:31 PM) [id number]
--- NOTE | 2021-05-29 13:29 | ED.ADGEN ---
Past Medical History Past Medical History: Hypertension Additional Past Medical Histor: ALLERGIES Past Surgical History: Tonsillectomy, Other Additional Past Surgical Histo: abd sx, CARDIAC STENT Smoking Status: Current Every Day Smoker Additional Information: 10/30 PPD Alcohol Use: None Drug Use: Marijuana General Adult EDM: Chief Complaint: CONSTIPATION HPI: HPI: Patient is a 50-year-old female who presents to the emergency room complaining of constipation, left flank pain, lower left abdominal pain that has been ongoing over the last week. Patient has tried multiple laxatives without any relief. She has also been taking Pepto-Bismol. She states that she had a small bowel movement this morning that was dark in color. She denies any nausea or vomiting. She is also having bilateral shoulder pain and tension. She thinks this is due to work. She denies any numbness or tingling. Pain is intermittent and achy in nature. Review of Systems: Review of Systems: Complete ROS is negative unless otherwise documented in HPI Current Medications: Current Medications Medications (Trade) Dose Ordered Sig/Leonid Start Time Stop Time Status Last Admin Dose Admin Dexamethasone (Decadron) 4 mg STK-MED ONCE 05/29/21 13:38 05/29/21 13:39 DC Magnesium Citrate (Citroma) 296 ml 1X ONCE 05/29/21 13:30 05/29/21 13:39 DC 05/29/21 13:30 296 ML Allergies: Allergies: Allergies Coded Allergies Type Severity Reaction Last Updated Verified No Known Drug Allergies 02/24/14 No Physical Exam: PE: General: Awake, alert, NAD. Well Nourished, well hydrated. Cooperative HEENT: Atraumatic, EOMI, PERRL, airway patent, moist oral mucosa Neck: Supple, trachea midline Respiratory: CTA bilaterally, normal effort, no wheezing/crackles CV: RRR, no murmur, cap refill <2 GI: Soft, nondistended, nontender, no masses MSK: No obvious deformities, muscle spasms along bilateral upper back Skin: Warm, dry, intact Neuro: A&O x3, speech NL, sensory and motor grossly intact, no focal deficits Psych: Normal affect, normal mood, not suicidal or homicidal Current Patient Data: Labs: Laboratory Tests Test 05/29/21 10:30 Urine Collection Type Unknown Urine Color Yellow Urine Clarity Clear Urine pH 6.0 (<5.0-8.0) Urine Specific [place] 1.015 (1.000-1.030) Urine Protein Negative mg/dL (NEG-TRACE) Urine Glucose (UA) Negative mg/dL (NEG) Urine Ketones (Stick) Negative mg/dL (NEG) Urine Blood Negative (NEG) Urine Nitrite Negative (NEG) Urine Bilirubin Negative (NEG) Urine Urobilinogen Dipstick 0.2 mg/dL (0.2 mg/dL) Urine Leukocyte Esterase Negative (NEG) Urine RBC 0 /HPF (0-2) Urine WBC 0 /HPF (0-4) Urine Squamous Epithelial Cells Few /LPF Urine Bacteria 0 /HPF (0-FEW) Vital Signs: Vital Signs Date Time Temp Pulse Resp B/P (MAP) Pulse Ox O2 Delivery O2 Flow Rate FiO2 05/29/21 12:03 83 18 155/89 (111) 97 Room Air 05/29/21 09:34 98.0 98.0 EKG: EKG: [] Heart Score: C/O Chest Pain: N/A Risk Factors: Risk Factors: DM, Current or recent (<one month) smoker, HTN, HLP, family history of CAD, obesity. Risk Scores: Score 0 - 3: 2.5% MACE over next 6 weeks - Discharge Home Score 4 - 6: 20.3% MACE over next 6 weeks - Admit for Clinical Observation Score 7 - 10: 72.7% MACE over next 6 weeks - Early Invasive Strategies Radiology/Procedures: Radiology/Procedures: [] Course & Med Decision Making: Course & Med Decision Making Pertinent Labs and Imaging studies reviewed. (See chart for details) Patient is a 50-year-old previously healthy female presents to the emergency room complaining of abdominal pain, constipation, shoulder tension. Shoulder tension appears to be musculoskeletal in nature. Will treat symptomatically. Patient is neurovascularly intact. She has not had any trauma. Abdominal pain may be related to constipation. X-ray does not show significant amount of stool. CT abdomen pelvis will be done given patient's additional flank pain and abdominal pain to rule out a kidney stone or signs of colitis. CT is unremarkable. We will treat patient with magnesium citrate for her constipation. Patient's test results and vitals while in the ED were fully revi ewed and discussed with the patient. Patient is stable and at this time does not need admission to the hospital. We have discussed strict return precautions and the importance of following up with their Primary Care Physician. Patient stated understanding and was given an opportunity to ask any questions. Patient is in agreement with plan. Dragon Disclaimer: Ilana Disclaimer: This electronic medical record was generated, in whole or in part, using a voice recognition dictation system. Departure Departure Impression: Primary Impression: Muscle strain Additional Impression: Constipation Disposition: HOME / SELF CARE / HOMELESS Condition: STABLE Referrals: NO PCP (PCP) Patient Instructions: Constipation, Adult, Muscle Strain Problem Qualifiers MARISOL MCDOWELL MD May 29, 2021 13:29
[2021-05-29] MEDS ORDERED: MAGNESIUM CITRATE 296 ML SOLUTION. PO ONE (13:30)
[2021-05-29] MEDS ORDERED: DEXAMETHASONE 4 MG TABLET PO ONE (13:30)
[2021-05-29] MEDS ORDERED: DEXAMETHASONE 4 MG TABLET ONE (13:38)
== END 2021-05-29 13:45 | disposition home or self-care (01) ==
LOC: ER 08:40
DX: S39.011A Strain of muscle, fascia and tendon of abdomen, initial encounter (principal); K59.00 Constipation, unspecified; M54.5 Low back pain; I10 Essential (primary) hypertension; F17.200 Nicotine dependence, unspecified, uncomplicated; X50.9XXA Other and unspecified overexertion or strenuous movements or postures, initial encounter; Y93.89 Activity, other specified; Y92.89 Other specified places as the place of occurrence of the external cause; Y99.8 Other external cause status
CPT/HCPCS: 74022; 74176; 81001; 99285-25